=== PATIENT | male | born 1960 | race Caucasian/White ===

== ENCOUNTER 2016-03-23 13:03 | Day surgery (SDC) | payer BC ==
[~2016-03-23] VITALS: Ht 167.6 cm; Wt 72.2 kg
[~2016-03-23 13:03] MED LIST: AMLO-147 PO; LOSA50TA6 PO; OMEP40CA6 PO; TAMS0.4C2 PO; ZOLP10TA5 PO
[2016-03-23 14:11] VITALS: Ht 167.6 cm; Wt 72.2 kg
[2016-03-23] MEDS ORDERED: TRAZ50TA18 PO (14:22)
[2016-03-23 14:50] VITALS: BP 131/63; PULSE 71; RESP 24
[2016-03-23] MEDS ORDERED: LIDOCAINE 2% (SDV) 5 ML INJ ONE (15:08)
[2016-03-23] MEDS ORDERED: PROPOFOL 40 ML ONE (15:08)
[2016-03-23 15:57] VITALS: BP 134/69; PULSE 61; RESP 18
--- NOTE | 2016-03-24 12:57 | GILP ---
DATE OF PROCEDURE: 03/23/2016 PROCEDURE: Esophagogastroduodenoscopy plus biopsies. SURGEON: Richie Cat MD PREMEDICATION: Monitored anesthesia care by anesthesiologist. BRIEF HISTORY AND INDICATIONS: The patient with history of cirrhosis here for surveillance EGD for esophageal varices. FINDINGS: ESOPHAGUS: The distal esophagus showed small grade I/IV esophageal varices. STOMACH: Upon entrance to the stomach, air was insufflated, the gastric humphreys distended normally. There is erythema and edema of the mucosa of a moderate degree. Biopsies were obtained to rule out H. pylori infection. PYLORUS: The pylorus is patent, within normal limits. DUODENUM: The duodenal bulb showed a multitude of superficial shallow ulcerations with no evidence of bleeding. IMPRESSION: 1. Grade I/IV esophageal varices. 2. Gastritis, rule out Helicobacter pylori infection, biopsies obtained. 3. Multiple shallow duodenal ulcerations. PLAN: The patient will be restarted on PPI. She had stopped because she ran out of prescription. Pathology will be reviewed as soon as available. Surveillance EGD for esophageal varices is recomme nded in 6 months. Dictated By: RICHIE CAT MS/DONTRELL Conf#: [id number] DID#: [id number] CC: RICHIE CAT;*EndCC*
== END 2016-03-23 16:52 | disposition home or self-care (01) ==
LOC: GIL 13:03
PROVIDERS: ATTEND Internal Medicine Gastroenterology
DX: I85.00 Esophageal varices without bleeding (principal); K29.70 Gastritis, unspecified, without bleeding; K26.9 Duodenal ulcer, unspecified as acute or chronic, without hemorrhage or perforation; K74.60 Unspecified cirrhosis of liver; I10 Essential (primary) hypertension; K21.9 Gastro-esophageal reflux disease without esophagitis
CPT/HCPCS: 43239; 88305; Z7610